=== PATIENT | female | born 1960 ===

== ENCOUNTER 2024-03-20 16:14 | Emergency (ER) | payer OTHER, SELFPAY ==
[2024-03-20 16:23] VITALS: BP 130/83
[2024-03-20 16:45] LABS: Urine Albumin Negative (Neg - Trace); Urine Bilirubin Negative (Negative); Urine Character Clear (Clear); Urine Color Yellow; Urine Glucose Negative (Negative); Urine Ketone Negative (Negative); Urine Leukocyte Negative (Negative); Urine Nitrite Negative (Negative); Urine Occult Blood Negative (Negative); Urine Urobilinogen Negative (Neg - 1+)
[2024-03-20 16:46] LABS: % Basophils 0.5 % (0-2); % Immature Granulocytes 0.3 % (0-0.5); % Lymphocytes 14.3 % (20.5-51.1); % Monocytes 4.8 % (1.7-9.3); % Neutrophils 75.1 % (42.2-75.2); Absolute Basophils 0.1 10^3/uL (0-0.2); Absolute Eosinophils 0.5 10^3/uL (0-0.7); Absolute Lymphocytes 1.5 10^3/uL (1.2-3.4); Absolute Monocytes 0.5 10^3/uL (0.1-0.6); Absolute Neutrophils 7.8 10^3/uL (1.4-6.5); Hematocrit 38.4 % (37.0-47.0); Hemoglobin 13.2 g/dL (12.0-16.0); Mean Corp Hgb Conc. 34.4 g/dL (33.0-37.0); Mean Corpuscular Hgb 31.1 pg (27.0-31.0); Mean Corpuscular Volume 90.6 fL (81.0-99.0); Mean Platelet Volume 9.6 fL (7.4-10.4); Nucleated Red Blood Cells % 0 %; Platelet Count 303 10^3/uL (130-400); Red Blood Cell Count 4.24 10^6/uL (4.20-5.40); Red Cell Dist. Width 13.1 % (11.5-14.5); White Blood Cell Count 10.4 10^3/uL (4.8-10.8)
[2024-03-20 16:57] LABS: ALT (SGPT) 17 U/L (0-35); AST (SGOT) 29 U/L (14-36); Albumin 4.6 g/dl (3.5-5.0); Alkaline Phosphatase 77 U/L (38-126); Blood Urea Nitrogen 9 mg/dl (7-17); Calcium 10.5 mg/dl (8.4-10.2); Carbon Dioxide 31 mmol/L (22-30); Chloride 102 mmol/L (98-107); Glucose 111 mg/dl (70-99); Lipase 129 U/L (23-300); Potassium 4.2 mmol/L (3.5-5.1); Sodium 138 mmol/L (135-145); Total Bilirubin 0.7 mg/dl (0.2-1.3); Total Protein 7.5 g/dl (6.3-8.2); eGFR > 60.00
--- NOTE | 2024-03-20 17:39 | ED.GENMED ---
History of Present Illness
General
Chief Complaint: Abdominal Pain
Time Seen by Provider: 03/20/24 17:23
History of Present Illness
History of Present Illness:
63-year-old female presents the emergency department for evaluation of abrupt onset of upper abdominal pain beginning approximate 5 hours ago. Pain was sudden in nature, nonradiating. Has gradually improved to the point that it is almost resolved
as of this time. Denies any vomiting or diarrhea. No recent fevers or chills. No history of abdominal surgeries. She is on methotrexate for dermatomyositis currently
Review of Systems
Review of Systems
Allergies reviewed?: Yes
All Other Systems: ROS reviewed and negative except as documented in HPI and ROS
Phy Exam
Physical Exam
Physical Exam:
GEN: Well appearing, NAD, WDWN
HEENT: Oral mucosa moist, no scleral icterus
Cardiac: Regular rate
Lung: No respiratory distress, no tachypnea
Abdomen: Soft, tender in the epigastrium, negative Sanchez sign, no rigidity or peritoneal signs
MSK: No gross deformity or injuries
Skin: Good color, no pallor or jaundice, no rashes
Neuro: AO x3, moves all extremities freely
Psych: Calm, cooperative
Course
Orders/Labs/Results
Orders:
Orders
03/20/24 16:33
Complete Blood Count/With Diff Urgent
Comprehensive Metabolic Panel Urgent
Lipase Urgent
03/20/24 16:37
Urinalysis Reflex To Culture Urgent
Date Specimen was Collected: 03/20/24
Time Specimen was Collected: 16:25
03/20/24 17:39
CT Abd/Pel (IV only)-DH only Urgent
Comment:
Reason For Exam: epigastric pain
Abnormal Lab Results
03/20/24
16:33
MCH 31.1 H pg
(27.0-31.0)
Absolute Neuts (auto) 7.8 H 10^3/uL
(1.4-6.5)
Lymphocytes % 14.3 L %
(20.5-51.1)
Carbon Dioxide 31 H mmol/L
(22-30)
Glucose 111 H mg/dl
(70-99)
Calcium 10.5 H mg/dl
(8.4-10.2)
03/20/24 16:33
03/20/24 16:33
Vital Signs
Initial and Last Documented VS:
Initial Vital Signs
Temp Pulse Resp BP Pulse Ox
97.8 F 73 18 130/83 100
03/20/24 16:23 03/20/24 16:23 03/20/24 16:23 03/20/24 16:23 03/20/24 16:23
Last Documented Vital Signs
Temp Pulse Resp BP Pulse Ox
97.8 F 73 18 130/83 100
03/20/24 16:23 03/20/24 16:23 03/20/24 16:23 03/20/24 16:23 03/20/24 16:23
MDM/Problems Addressed
MDM/Problems Addressed:
Imaging is unremarkable, labs reassuring. She has noted to have liquid filled colon suggesting impending diarrheal illness, advised to increase fluids
*Critical Care Note
Total Time (30-74mins, 75-104mins- exclusive of procedures): Not Applicable
ED Attending Note
-
Portions of this chart may have been created with voice recognition software.� Occasional wrong word or��sound alike� substitutions may have occurred due to the inherent limitations of voice recognition software.
Discharge Plan
Departure
Patient Disposition: Home (Routine Discharge)
Date of Disposition: 03/20/24
Time of Disposition: 19:06
Patient with high blood pressure during this ER visit?: No
Discharge Problem:
Abdominal pain
Instructions: Abdominal Pain
Referrals:
Jimenez Larios MD [Family Provider] -
Activity Restrictions/Additional Instructions:
Your CT scan shows no acute abnormalities suggesting a source of your pain however your colon was filled with liquid suggesting he may have diarrhea in the next 1 to 2 days
Interventions
Interventions:
*Risk Screen - Suicide Last Done: 03/20/24 19:00
*General Assessment Last Done: 03/20/24 19:00
*Neglect/Abuse Screening Last Done: 03/20/24 19:00
ED- Fall Risk Assessment Last Done: 03/20/24 18:00
*ED COVID-19 Vaccine History Last Done: 03/20/24 19:00
*Nursing Disposition Last Done: 03/20/24 19:26
[facility] Assessment Last Done: 03/20/24 18:00
Discharge Date and Time
Discharge Date/Time: 03/20/24 19:26
Print Language: INDONESIAN
== END 2024-03-20 19:26 | disposition home or self-care (01) ==
LOC: EMR 16:14
PROVIDERS: Emergency Medicine; EMERGENCY PHYSICIAN Emergency Medicine; FAMILY PHYSICIAN Internal Medicine
DX: R10.10 Upper abdominal pain, unspecified (principal); M33.13 Other dermatomyositis without myopathy
CPT/HCPCS: 99284; 74177; 80053; 81003; 83690; 85025; Q9967